=== PATIENT | female | born 1935 | race Caucasian/White ===

== ENCOUNTER 2017-04-06 17:59 | Emergency (ER) | payer MEDICARE, OTHER ==
[~2017-04-06] VITALS: Ht 162.6 cm; Wt 55.4 kg
[~2017-04-06 17:59] MED LIST: ALPR0.25 PO; ASPI81TA82 PO; CALCCHW14; CIPR500T4 PO; CLIN1CAP6 PO; HYDR-3580 PO; METO25TA6 PO; OMEG100010; PRIL20CA PO; ROXI5TAB4 PO; ZOFR4TAB3 SL
[2017-04-06 18:07] VITALS: BP 164/76; PULSE 84; RESP 17; TEMP 98.5; O2SAT 99
--- NOTE | 2017-04-06 18:15 | PD ---
HPI Chief Complaint: Fall Time Seen by Provider: 18:15 Travel History International Travel<30 days: No Contact w/Intl Traveler<30days: No Traveled to known affect area: No History of Present Illness HPI 81-year-old female with PMH of HTN, A. fib, breast CA presents to the ED via EMS for evaluation after a mechanical fall at approximately 2 PM today. Patient states that she was attempting to move a box, pulling backwards, fell onto her left hip. She denies hitting her head or loss of consciousness. She has been ambulatory since the accident. On presentation she complains of 5/10 left buttock pain, no alleviating or exacerbating factors reported. She states that her left leg "doesn't feel right" but denies numbness, tingling, weakness, limitations to range of motion of the extremity. She endorses previous injury to the left femur, stating that she has "hardware." She states that she applied ice with no improvement in symptoms. PFSH Past Medical History Atrial Fibrillation: Yes Cancer: Yes (L BREAST) Hypertension: Yes Insomnia: Yes Radiation Therapy: Yes ?: Not Menopausal: Yes Past Surgical History Abdominal Surgery: Yes (COLON RESCECTION) Appendectomy: Yes Eye Surgery: Yes (CATARACTS, SCAR TISSUE, DETACHED RETINA) Hysterectomy: Yes (TOTAL) Other Surgery: Yes (TOOTH EXTRACTION) Social History Alcohol Use: Yes (OCCASIONALLY) Tobacco Use: No Substance Use: No Allergies-Medications (Allergen,Severity, Reaction): Coded Allergies: Penicillin (Verified Allergy, Severe, Rash, 04/06/17) Clindamycin (Verified Allergy, Mild, rash, 04/06/17) Erythromycin (Verified Allergy, Mild, Diarrhea, 04/06/17) Hydrocodone (Verified Allergy, Mild, Nausea/Vomiting, 04/06/17) Ibuprofen (Verified Allergy, Mild, Hypertension, 04/06/17) Reclast (Verified Allergy, Unknown, 04/06/17) Sulfa (Verified Allergy, Unknown, Skin Discoloration, 04/06/17) Reported Meds & Prescriptions Reported Meds & Active Scripts Active Percocet (Oxycodone-Acetaminophen) 5-325 mg Tab 1 Tab PO Q6H PRN Robaxin (Methocarbamol) 500 Mg Tab 500 Mg PO TID Reported Calcium (Calcium Carbonate) 1,500 Mg Tab 1,500 Mg PO 1,500 mg calcium carbonate (600 mg elemental calcium) Cranberry (Cranberry (Vaccinium Macrocarpon)) 600 Mg Tab 8,400 Mg Green Tea (Green Tea (Camillia Sinensis)) 315 Mg Cap Curcumin (Turmeric (Curcuma Longa) (Bulk) 1 Pow Pow 500 Mg DAILY Coq-10 (Coenzyme Q10 (Ubidecarenone)) 100 Mg Cap DAILY Aspirin 81 Mg Chew 81 Mg CHEW DAILY Magnesium 100 Mg Tab 300 Mg DAILY Selenimin (Selenium) 125 Mcg Tab 200 Mg PO DAILY Red Yeast Rice (Red Yeast Rice Extract) 600 Mg Tab 1,200 Mg DAILY Metoprolol Tartrate 25 Mg Tab 25 Mg PO DAILY Alprazolam 0.5 Mg Tab 0.5 Mg PO Q8H PRN Review of Systems Except as stated in HPI: all other systems reviewed are Neg Physical Exam Narrative GENERAL: Well-nourished, well-developed white female, appearing younger than her stated age lying on her right side in no acute distress. SKIN: Focused skin assessment warm/dry. Large, faint ecchymosis of the left buttock. HEAD: Normocephalic. Atraumatic. EYES: No scleral icterus. No injection or drainage. NECK: Supple, trachea midline. No JVD or lymphadenopathy. CARDIOVASCULAR: Regular rate and rhythm without murmurs, gallops, or rubs. 2+ DP and radial pulses bilaterally. RESPIRATORY: Breath sounds clear and equal bilaterally. No accessory muscle use. GASTROINTESTINAL: Abdomen soft, non-tender, nondistended. Active bowel sounds. MUSCULOSKELETAL: No cyanosis, or edema. FOCUSED LEFT LOWER EXTREMITY EXAM: Palpable spasm of the left buttock. TTP of the buttock, left lateral femur and coccyx. No TTP of the hip or groin. Patient is able to flex and extend the ankle and toes. Flexion of the knee elicits pain in the buttock. No leg length or rotational discrepancy. Sensation intact to light touch distally. Cap refill <2 secs. BACK: Nontender without obvious deformity. No CVA tenderness. No midline TTP. Data Data Last Documented VS Vital Signs Date Time Temp Pulse Resp B/P Pulse Ox O2 Delivery O2 Flow Rate FiO2 04/06/17 18:07 98.5 84 17 164/76 99 Orders Iv Access Insert/Monitor (04/06/17 18:15) Complete Blood Count With Diff (04/06/17 18:15) Basic Metabolic Panel (Bmp) (04/06/17 18:15) Hip, Uni(Ap&Lat) W Ap Pelvis (04/06/17 18:15) Femur (Ap & Lat/2vws) (04/06/17 18:26) Sacrum And Coccyx (04/06/17 ) Morphine Inj (Morphine Inj) (04/06/17 18:30) Orphenadrine Inj (Norflex Inj) (04/06/17 18:30) Sodium Chlorid 0.9% 500 Ml Inj (Ns 500 M (04/06/17 18:30) Oxycodone-Acetamin 5-325 Mg (Percocet (04/06/17 20:30) Labs Laboratory Tests Test 04/06/17 18:26 White Blood Count 8.6 TH/MM3 Red Blood Count 4.26 MIL/MM3 Hemoglobin 12.6 GM/DL Hematocrit 38.6 % Mean Corpuscular Volume 90.5 FL Mean Corpuscular Hemoglobin 29.6 PG Mean Corpuscular Hemoglobin 32.7 % Concent Red Cell Distribution Width 13.0 % Platelet Count 228 TH/MM3 Mean Platelet Volume 7.5 FL Neutrophils (%) (Auto) 69.0 % Lymphocytes (%) (Auto) 21.0 % Monocytes (%) (Auto) 6.9 % Eosinophils (%) (Auto) 2.2 % Basophils (%) (Auto) 0.9 % Neutrophils # (Auto) 5.9 TH/MM3 Lymphocytes # (Auto) 1.8 TH/MM3 Monocytes # (Auto) 0.6 TH/MM3 Eosinophils # (Auto) 0.2 TH/MM3 Basophils # (Auto) 0.1 TH/MM3 CBC Comment DIFF FINAL Differential Comment Sodium Level 141 MEQ/L Potassium Level 3.9 MEQ/L Chloride Level 104 MEQ/L Carbon Dioxide Level 27.6 MEQ/L Anion Gap 9 MEQ/L Blood Urea Nitrogen 14 MG/DL Creatinine 0.87 MG/DL Estimat Glomerular Filtration 63 ML/MIN Rate Random Glucose 104 MG/DL Calcium Level 8.7 MG/DL MDM Medical Decision Making Medical Screen Exam Complete: Yes Emergency Medical Condition: Yes Differential Diagnosis hip fracture versus femur fracture versus coccygeal fracture versus muscle spasm versus musculoskeletal pain versus Narrative Course 81-year-old female with PMH of HTN, A. fib, breast CA presents to the ED via EMS for evaluation after a mechanical fall at approximately 2 PM today. Patient states that she was attempting to move a box, pulling backwards, fell onto her left hip. She denies hitting her head or loss of consciousness. She has been ambulatory since the accident. On presentation she complains of 5/10 left buttock pain, no alleviating or exacerbating factors reported. She states that her left leg "doesn't feel right" but denies numbness, tingling, weakness, limitations to range of motion of the extremity. She endorses previous injury to the left femur, stating that she has had "hardware." Vitals reviewed. Physical exam reveals a large, tender ecchymosis of the left buttock. There is palpable spasm of the left buttock. TTP of the buttock and coccyx. No TTP of the hip or groin. Patient is able to flex and extend the ankle and toes.Flexion of the knee elicits pain in the buttock. No leg length or rotational discrepancy. Neurovascularly intact. IV was established. The patient was administered a 500 mL saline bolus, 4 mg IV morphine and IM Robaxin. CBC and CMP: Unremarkable. X-ray of the sacrum/coccyx: Unremarkable per radiology read. X-ray left hip and pelvis: No acute bony injury per radiology read. X-ray left femur: Evidence of previous injury or radiology read. On recheck the patient is lying on her back, crying. She is requesting more pain medications. States that she has taken Percocet before with no problems. She was administered 5mg Percocet PO. I discussed the results of the workup with the patient. She was able to demonstrate standing and walking before discharge. She complained of mild nausea and was administered 4 mg Zofran ODT. This is contusion of the left buttock. Patient was prescribed a short course of 5 mg Percocet for pain greater than 6 and Robaxin to 6-8 hours as needed for muscle spasm. She is instructed to take Tylenol for pain less than 6 on the pain scale, call her primary care, Dr. Bacon, tomorrow for follow-up. The patient and her indicated understanding of the instructions and are agreeable to the care plan. They are quite impatient to leave. The patient is stable and discharged home. Diagnosis Primary Impression: Contusion of buttock Qualified Code: S30.0XXA - Contusion of buttock, initial encounter Additional Impression: Fall Qualified Code: W19.XXXA - Fall, initial encounter Referrals: Parveen Bacon MD Patient Instructions: Contusion in Adults (ED), General Instructions Additional Instructions: Rest, hydrate. Resume normal, gentle activities as tolerated. No strenuous physical activities for the next few days Take Tylenol as directed on the label as needed for pain 1-5 on the pain scale. Take Percocet as needed for pain greater than 5 on the pain scale. Take Robaxin as needed for muscle spasm. Do not drive while taking narcotics or muscle relaxants. Applying ice or heat to areas with sore muscles may help to improve your pain. Do not apply ice/ heat for longer than 20 m/h. Follow-up with your primary care provider tomorrow as discussed. Return to the ED for any urgent or emergent medical condition. Med/Other Pt SpecificInfo: Prescription(s) given Scripts Oxycodone-Acetaminophen (Percocet)5-325 mg Tab1 Tab PO Q6H PRN (PAIN) #10 TAB Ref 0 Prov:Alba Husain MD 04/06/17 Methocarbamol (Robaxin)500 Mg Les521 Mg PO TID #20 TAB Ref 0 Prov:Alba Husain MD 04/06/17 Disposition: 01 DISCHARGE HOME Condition: Stable Ronel Sharpe April 06, 2017 18:15
[2017-04-06] MEDS ORDERED: SODIUM CHLORID 0.9% 500 ML INJ 500 ML IV ONE (18:30)
[2017-04-06] MEDS ORDERED: ORPHENADRINE INJ 60 MG/2 ML AMP IM ONE (18:30)
[2017-04-06] MEDS ORDERED: MORPHINE SULFATE 4 MG/ML INJ IV PUSH ONE (18:30)
[2017-04-06] MEDS ORDERED: METO25TA3 PO (18:34)
[2017-04-06] MEDS ORDERED: ALPR0.5T3 PO (18:34)
[2017-04-06] MEDS ORDERED: RED600TA ×2 (18:34→18:39)
[2017-04-06 18:39] LABS: AUTOMATED NEUTROPHIL # 5.9 TH/MM3 (1.8-7.7); BASOPHIL # 0.1 TH/MM3 (0-0.2); BASOPHIL % 0.9 % (0.0-2.0); EOSINOPHIL # 0.2 TH/MM3 (0-0.4); EOSINOPHIL % 2.2 % (0.0-4.0); HEMATOCRIT 38.6 % (35.0-46.0); HEMO FLAGS DIFF FINAL; LYMPHOCYTE # 1.8 TH/MM3 (1.0-4.8); MEAN CELL VOLUME 90.5 FL (80.0-100.0); MEAN CORPUSCULAR HEMOGLOBIN 29.6 PG (27.0-34.0); MEAN CORPUSCULAR HGB CONC 32.7 % (32.0-36.0); MONO % 6.9 % (0.0-8.0); PLATELET COUNT 228 TH/MM3 (150-450); RED BLOOD COUNT 4.26 MIL/MM3 (4.00-5.30); WHITE BLOOD COUNT 8.6 TH/MM3 (4.0-11.0)
[2017-04-06] MEDS ORDERED: SELE125T PO (18:39)
[2017-04-06] MEDS ORDERED: CALC600T12 PO (18:39)
[2017-04-06] MEDS ORDERED: CURCPOW (18:39)
[2017-04-06] MEDS ORDERED: COQ-100C2 (18:39)
[2017-04-06] MEDS ORDERED: GREE315C2 (18:39)
[2017-04-06] MEDS ORDERED: ELIT100T2 (18:39)
[2017-04-06] MEDS ORDERED: CRAN600T (18:39)
[2017-04-06] MEDS ORDERED: ASPI81CH CHEW (18:39)
[2017-04-06 19:01] LABS: BICARBONATE 27.6 MEQ/L (21.0-32.0); POTASSIUM 3.9 MEQ/L (3.5-5.1)
--- NOTE | 2017-04-06 19:39 | RADRPT ---
EXAM DATE/TIME: 04/06/2017 18:56 [facility] COMPARISON: FEMUR LEFT (AP & LAT/2VWS), April 06, 2017, 18:56. INDICATIONS : Left hip pain, fall tonight. MEDICAL HISTORY : None. SURGICAL HISTORY : Left femur fx several years ago. ENCOUNTER: Initial ACUITY: 1 day PAIN SCORE: 10/10 LOCATION: Left hip. FINDINGS: Examination of the left hip was performed with AP Pelvis. The primary and secondary trabecular patte rn of the femoral neck is intact. The hip joint is of normal width without significant sclerosis or bony hypertrophy. The acetabulum is grossly intact. There is an incompletely seen bone lesion involv ing the midshaft of the left femur. CONCLUSION: No acute bony injury in the left hip. Incompletely seen abnormality in the midshaft of the left femur . Benny Kee MD on April 06, 2017 at 19:34 Board Certified Radiologist. This report was verified electronically.
--- NOTE | 2017-04-06 19:41 | RADRPT ---
EXAM DATE/TIME: 04/06/2017 18:56 [facility] COMPARISON: No previous studies available for comparison. INDICATIONS : Left hip pain, fall tonight. MEDICAL HISTORY : None. SURGICAL HISTORY : Previous femur fx several years ago. ENCOUNTER: Initial ACUITY: 1 day PAIN SCORE: 10/10 LOCATION: Left hip. FINDINGS: There is a poorly circumscribed mixed lucent and sclerotic lesion in the midshaft region of the left femur. There is nothing to suggest associated soft tissue mass. There is no evidence of acute fractur e. CONCLUSION: Abnormal appearance of the midshaft of the left femur. If the patient has history of prior femur fracture, this could simply represent a manifestation of a healing pattern. If not, furth er evaluation with MRI on an elective basis would be recommended. Benny Kee MD on April 06, 2017 at 19:36 Board Certified Radiologist. This report was verified electronically.
--- NOTE | 2017-04-06 19:43 | RADRPT ---
EXAM DATE/TIME: 04/06/2017 18:59 [facility] COMPARISON: No previous studies available for comparison. INDICATIONS : Lower back, left rear hip pain, fall tonight. MEDICAL HISTORY : None. SURGICAL HISTORY : Femur fx several years ago. ENCOUNTER: Initial ACUITY: 1 day PAIN SCORE: 10/10 LOCATION: Left hip. FINDINGS: Two-view examination of the sacrum and coccyx demonstrates no evidence of fracture or malalignment. The sacral ala and foramina appear symmetric and intact. The coccyx appears unremarkable. The preve rtebral soft tissues are within normal limits. CONCLUSION: Unremarkable examination of the sacrum and coccyx. Benny Kee MD on April 06, 2017 at 19:39 Board Certified Radiologist. This report was verified electronically.
[2017-04-06] MEDS ORDERED: oxyCODONE/ACETAMINOPHEN 5 MG/325 MG TAB PO ONE (20:30)
[2017-04-06] MEDS ORDERED: ROBA500T PO ×2 (20:32→20:33)
[2017-04-06] MEDS ORDERED: PERC5TAB12 PO ×2 (20:32→20:33)
[2017-04-06] MEDS ORDERED: ONDANSETRON ODT 4 MG TAB PO ONE (21:15)
== END 2017-04-06 21:44 | disposition home or self-care (01) ==
LOC: NEPC 17:59
DX: S30.0XXA Contusion of lower back and pelvis, initial encounter (principal); I10 Essential (primary) hypertension; I48.91 Unspecified atrial fibrillation; Z85.3 Personal history of malignant neoplasm of breast; W18.30XA Fall on same level, unspecified, initial encounter; Y93.E9 Activity, other interior property and clothing maintenance; Y92.009 Unspecified place in unspecified non-institutional (private) residence as the place of occurrence of the external cause; Y99.8 Other external cause status
CPT/HCPCS: 72220; 73502; 73552; 80048; 85025; 96374; 96375; 99284; J2270; J2360; J7040

== ENCOUNTER 2017-04-12 17:03 | Emergency (ER) | payer MEDICARE, OTHER ==
[~2017-04-12] VITALS: Ht 165.1 cm; Wt 55.2 kg
[~2017-04-12 17:03] MED LIST changes: -ALPR0.25 PO; +ALPR0.5T3 PO; +ASPI81CH CHEW; -ASPI81TA82 PO; +CALC600T12 PO; -CALCCHW14; -CIPR500T4 PO; -CLIN1CAP6 PO; +COQ-100C2; +CRAN600T; +CURCPOW; +ELIT100T2; +GREE315C2; -HYDR-3580 PO; +METO25TA3 PO; -METO25TA6 PO; -OMEG100010; +PERC5TAB12 PO; -PRIL20CA PO; +RED600TA; +ROBA500T PO; -ROXI5TAB4 PO; +SELE125T PO; -ZOFR4TAB3 SL
[2017-04-12 17:05] VITALS: BP 196/81; PULSE 84; RESP 16; TEMP 97.4; O2SAT 100
--- NOTE | 2017-04-12 17:26 | PD ---
Physical Exam Time Seen by Provider: 17:25 Narrative 81 y/o female here with L buttocks pain/"lump" after a fall. Recently seen about this, getting worse which prompted reevaluation. Vital signs reviewed. Seen at triage desk. Awaiting bed placement. Data Data Last Documented VS Vital Signs Date Time Temp Pulse Resp B/P Pulse Ox O2 Delivery O2 Flow Rate FiO2 04/12/17 17:05 97.4 84 16 196/81 100 MDM Medical Record Reviewed: Yes Supervised Visit with JANE: Augusto Wilson April 12, 2017 17:26
--- NOTE | 2017-04-12 19:57 | PD ---
HPI Chief Complaint: Fall Time Seen by Provider: 19:56 Travel History International Travel<30 days: No Contact w/Intl Traveler<30days: No Traveled to known affect area: No History of Present Illness HPI 81-year-old female presents to the ED for evaluation of hematoma of the buttocks after a fall last week. On presentation the patient states that the pain is improved unless the area is touched. She is ambulatory. The patient called her primary care Dr. Bacon who recommended she seek treatment in the ED. PFSH Past Medical History Atrial Fibrillation: Yes Cancer: Yes (L BREAST) Cardiovascular Problems: Yes (AFIB) Hypertension: Yes Insomnia: Yes Radiation Therapy: Yes Tetanus Vaccination: > 5 Years Menopausal: Yes Past Surgical History Abdominal Surgery: Yes (COLON RESCECTION) Appendectomy: Yes Eye Surgery: Yes (CATARACTS, SCAR TISSUE, DETACHED RETINA) Hysterectomy: Yes Other Surgery: Yes (TOOTH EXTRACTION) Social History Alcohol Use: Yes (wine in the evening 5 times a week.) Tobacco Use: No Substance Use: No Allergies-Medications (Allergen,Severity, Reaction): Coded Allergies: Penicillin (Verified Allergy, Severe, Rash, 04/06/17) Clindamycin (Verified Allergy, Mild, rash, 04/06/17) Erythromycin (Verified Allergy, Mild, Diarrhea, 04/06/17) Hydrocodone (Verified Allergy, Mild, Nausea/Vomiting, 04/06/17) Ibuprofen (Verified Allergy, Mild, Hypertension, 04/06/17) Reclast (Verified Allergy, Unknown, 04/06/17) Sulfa (Verified Allergy, Unknown, Skin Discoloration, 04/06/17) Reported Meds & Prescriptions Reported Meds & Active Scripts Active Percocet (Oxycodone-Acetaminophen) 5-325 mg Tab 1 Tab PO Q6H PRN Robaxin (Methocarbamol) 500 Mg Tab 500 Mg PO TID Reported Calcium (Calcium Carbonate) 1,500 Mg Tab 1,500 Mg PO 1,500 mg calcium carbonate (600 mg elemental calcium) Cranberry (Cranberry (Vaccinium Macrocarpon)) 600 Mg Tab 8,400 Mg Green Tea (Green Tea (Camillia Sinensis)) 315 Mg Cap Curcumin (Turmeric (Curcuma Longa) (Bulk) 1 Pow Pow 500 Mg DAILY Coq-10 (Coenzyme Q10 (Ubidecarenone)) 100 Mg Cap DAILY Aspirin 81 Mg Chew 81 Mg CHEW DAILY Magnesium 100 Mg Tab 300 Mg DAILY Selenimin (Selenium) 125 Mcg Tab 200 Mg PO DAILY Red Yeast Rice (Red Yeast Rice Extract) 600 Mg Tab 1,200 Mg DAILY Metoprolol Tartrate 25 Mg Tab 25 Mg PO DAILY Alprazolam 0.5 Mg Tab 0.5 Mg PO Q8H PRN Review of Systems Except as stated in HPI: all other systems reviewed are Neg Physical Exam Narrative GENERAL: Well-nourished, well-developed white female in no acute distress. SKIN: Focused skin assessment warm/dry. There is a huge hematoma of the left buttock extended to the distal third of the posterior thigh. There is a smaller hematoma of the right buttock. HEAD: Normocephalic. EYES: No scleral icterus. No injection or drainage. NECK: Supple, trachea midline. No JVD or lymphadenopathy. CARDIOVASCULAR: Regular rate and rhythm without murmurs, gallops, or rubs. RESPIRATORY: Breath sounds clear and equal bilaterally. No accessory muscle use. GASTROINTESTINAL: Abdomen soft, non-tender, nondistended. MUSCULOSKELETAL: No cyanosis, or edema. No tenderness to palpation of the hips bilaterally. Patient retains full, active ROM of the bilateral lower extremities. Vascular intact. BACK: Nontender without obvious deformity. No CVA tenderness. Data Data Last Documented VS Vital Signs Date Time Temp Pulse Resp B/P Pulse Ox O2 Delivery O2 Flow Rate FiO2 04/12/17 17:05 97.4 84 16 196/81 100 Orders Complete Blood Count With Diff (04/12/17 20:12) Comprehensive Metabolic Panel (04/12/17 20:12) Prothrombin Time / Inr (Pt) (04/12/17 20:12) Act Partial Throm Time (Ptt) (04/12/17 20:12) Iv Access Insert/Monitor (04/12/17 20:12) Ecg Monitoring (04/12/17 20:12) Oximetry (04/12/17 20:12) Sodium Chloride 0.9% Flush (Ns Flush) (04/12/17 20:15) Ct Pelvis W/O Iv Contrast (04/12/17 ) Morphine Inj (Morphine Inj) (04/12/17 20:45) Labs Laboratory Tests Test 04/12/17 20:25 White Blood Count 7.6 TH/MM3 Red Blood Count 4.32 MIL/MM3 Hemoglobin 13.1 GM/DL Hematocrit 38.3 % Mean Corpuscular Volume 88.6 FL Mean Corpuscular Hemoglobin 30.4 PG Mean Corpuscular Hemoglobin 34.3 % Concent Red Cell Distribution Width 13.2 % Platelet Count 315 TH/MM3 Mean Platelet Volume 7.5 FL Neutrophils (%) (Auto) 54.8 % Lymphocytes (%) (Auto) 33.8 % Monocytes (%) (Auto) 6.4 % Eosinophils (%) (Auto) 3.9 % Basophils (%) (Auto) 1.1 % Neutrophils # (Auto) 4.1 TH/MM3 Lymphocytes # (Auto) 2.6 TH/MM3 Monocytes # (Auto) 0.5 TH/MM3 Eosinophils # (Auto) 0.3 TH/MM3 Basophils # (Auto) 0.1 TH/MM3 CBC Comment DIFF FINAL Differential Comment Prothrombin Time 10.0 SEC Prothromb Time International 0.9 RATIO Ratio Activated Partial 26.0 SEC Thromboplast Time MDM Medical Decision Making Medical Screen Exam Complete: Yes Emergency Medical Condition: Yes Differential Diagnosis Skeletal skeletal pain versus hip fracture versus cervical fracture versus pelvic fracture versus hematoma versus other Narrative Course 81-year-old female presents to the ED for evaluation of hematoma of the buttocks after a fall last week. On presentation the patient states that the pain is improved unless the area is touched. She is ambulatory. The patient called her primary care Dr. Bacon who recommended she seek treatment in the ED. Patient was seen by myself earlier this week where she underwent x-rays of the hip, pelvis and sacrum and coccyx that were all negative. The hematoma is worsened today after compared to last visit. Patient maintains full, active range of motion of the lower extremities. Neurovascularly intact. I spoke with Dr. Bacon who was concerned for occult fracture due to the patient's level of pain. CT of the pelvis has been ordered. I offered the patient narcotic pain medication which she refused. Dr. Green will follow this patient. Please see her note for disposition. Ronel Sharpe April 12, 2017 19:57
[2017-04-12] MEDS ORDERED: SODIUM CHLORIDE 0.9% FLUSH 10 ML FLUSH IV FLUSH PRN (20:15)
[2017-04-12 20:41] LABS: AUTOMATED NEUTROPHIL # 4.1 TH/MM3 (1.8-7.7); BASOPHIL # 0.1 TH/MM3 (0-0.2); BASOPHIL % 1.1 % (0.0-2.0); EOSINOPHIL # 0.3 TH/MM3 (0-0.4); EOSINOPHIL % 3.9 % (0.0-4.0); HEMATOCRIT 38.3 % (35.0-46.0); HEMO FLAGS DIFF FINAL; LYMPH % 33.8 % (9.0-44.0); LYMPHOCYTE # 2.6 TH/MM3 (1.0-4.8); MEAN CELL VOLUME 88.6 FL (80.0-100.0); MEAN CORPUSCULAR HEMOGLOBIN 30.4 PG (27.0-34.0); MEAN CORPUSCULAR HGB CONC 34.3 % (32.0-36.0); MONO % 6.4 % (0.0-8.0); NEUT % 54.8 % (16.0-70.0); PLATELET COUNT 315 TH/MM3 (150-450); RED BLOOD COUNT 4.32 MIL/MM3 (4.00-5.30); RED CELL DISTRIBUTION WIDTH 13.2 % (11.6-17.2); WHITE BLOOD COUNT 7.6 TH/MM3 (4.0-11.0)
[2017-04-12] MEDS ORDERED: MORPHINE SULFATE 4 MG/ML INJ IV PUSH ONE (20:45)
[2017-04-12 20:47] LABS: INTERNATIONAL NORMALIZED RATIO 0.9 RATIO
[2017-04-12 21:01] LABS: ANION GAP 8 MEQ/L (5-15); AST (GOT) 17 U/L (15-37); BICARBONATE 29.6 MEQ/L (21.0-32.0); BLOOD UREA NITROGEN 15 MG/DL (7-18); CHLORIDE 102 MEQ/L (98-107); GLOMERULAR FILTRATION RATE 66 ML/MIN (>89); POTASSIUM 3.8 MEQ/L (3.5-5.1); SODIUM (NA) 140 MEQ/L (136-145)
[2017-04-12 21:04] LABS: ALKALINE PHOSPHATASE 54 U/L (45-117); ALT (GPT) 31 U/L (10-53); TOTAL BILIRUBIN ADULT 0.9 MG/DL (0.2-1.0)
--- NOTE | 2017-04-12 21:51 | RADRPT ---
EXAM DATE/TIME: 04/12/2017 21:07 [facility] COMPARISON: No previous studies available for comparison. INDICATIONS : Patient fell one week ago. Complains of worsening left buttock pain. ORAL CONTRAST: No oral contrast ingested. RADIATION DOSE: 11.87 CTDIvol (mGy) MEDICAL HISTORY : Carcinoma, breast. Hypertension. Afib. Prior left femur fracture. SURGICAL HISTORY : Appendectomy. Hysterectomy.Colon resection. ENCOUNTER: Initial ACUITY: 1 week PAIN SCALE: 10/10 LOCATION: Left buttock TECHNIQUE: Volumetric scanning of the pelvis was performed. Using automated exposure control and adjustment of the mA and/or kV according to patient size, radiation dose was kept as low as reasonably achievable t o obtain optimal diagnostic quality images. FINDINGS: There is a 4 cm hematoma in the left gluteal region overlying the left ischial tuberosity. Fracture i s identified. No hemorrhage or free fluid within the pelvis. Normal appearance of distal bowel. Bladd er unremarkable. CONCLUSION: 1. 4 cm hematoma in the left gluteus janett overlying the left ischial tuberosity. No associated fra cture or dislocation identified. Neil Moulton MD on April 12, 2017 at 21:45 Board Certified Radiologist. This report was verified electronically.
--- NOTE | 2017-04-12 22:16 | PD ---
Physical Exam Date Seen by Provider: April 12, 2017 Narrative Patient is here for recheck of a hematoma Data Data Last Documented VS Vital Signs Date Time Temp Pulse Resp B/P Pulse Ox O2 Delivery O2 Flow Rate FiO2 04/12/17 17:05 97.4 84 16 196/81 100 Orders Complete Blood Count With Diff (04/12/17 20:12) Comprehensive Metabolic Panel (04/12/17 20:12) Prothrombin Time / Inr (Pt) (04/12/17 20:12) Act Partial Throm Time (Ptt) (04/12/17 20:12) Iv Access Insert/Monitor (04/12/17 20:12) Ecg Monitoring (04/12/17 20:12) Oximetry (04/12/17 20:12) Sodium Chloride 0.9% Flush (Ns Flush) (04/12/17 20:15) Ct Pelvis W/O Iv Contrast (04/12/17 ) Morphine Inj (Morphine Inj) (04/12/17 20:45) Labs Laboratory Tests Test 04/12/17 20:25 White Blood Count 7.6 TH/MM3 Red Blood Count 4.32 MIL/MM3 Hemoglobin 13.1 GM/DL Hematocrit 38.3 % Mean Corpuscular Volume 88.6 FL Mean Corpuscular Hemoglobin 30.4 PG Mean Corpuscular Hemoglobin 34.3 % Concent Red Cell Distribution Width 13.2 % Platelet Count 315 TH/MM3 Mean Platelet Volume 7.5 FL Neutrophils (%) (Auto) 54.8 % Lymphocytes (%) (Auto) 33.8 % Monocytes (%) (Auto) 6.4 % Eosinophils (%) (Auto) 3.9 % Basophils (%) (Auto) 1.1 % Neutrophils # (Auto) 4.1 TH/MM3 Lymphocytes # (Auto) 2.6 TH/MM3 Monocytes # (Auto) 0.5 TH/MM3 Eosinophils # (Auto) 0.3 TH/MM3 Basophils # (Auto) 0.1 TH/MM3 CBC Comment DIFF FINAL Differential Comment Prothrombin Time 10.0 SEC Prothromb Time International 0.9 RATIO Ratio Activated Partial 26.0 SEC Thromboplast Time Sodium Level 140 MEQ/L Potassium Level 3.8 MEQ/L Chloride Level 102 MEQ/L Carbon Dioxide Level 29.6 MEQ/L Anion Gap 8 MEQ/L Blood Urea Nitrogen 15 MG/DL Creatinine 0.83 MG/DL Estimat Glomerular Filtration 66 ML/MIN Rate Random Glucose 97 MG/DL Calcium Level 9.4 MG/DL Total Bilirubin 0.9 MG/DL Aspartate Amino Transf 17 U/L (AST/SGOT) Alanine Aminotransferase 31 U/L (ALT/SGPT) Alkaline Phosphatase 54 U/L Total Protein 7.4 GM/DL Albumin 4.0 GM/DL MDM Supervised Visit with JANE: Yes Narrative Course I, Dr. Green, have reviewed the advance practice practitioner's documentation and am in agreement, met with the patient face to face, made the diagnosis, and the medical decision making was done by me. CBC & BMP Diagram 04/12/17 20:25 Coags are normal. Last Impressions Pelvis CT 04/12/17 0000 Signed Impressions: Service Date/Time: Wednesday, April 12, 2017 21:07 - CONCLUSION: 1. 4 cm hematoma in the left gluteus janett overlying the left ischial tuberosity. No associated fracture or dislocation identified. Neil Moulton MD Diagnosis Primary Impression: Contusion of buttock Qualified Code: S30.0XXD - Contusion of buttock, subsequent encounter Disposition: DISCHARGE HOME Condition: Stable Ngozi Green MD April 12, 2017 22:16
== END 2017-04-12 22:44 | disposition home or self-care (01) ==
LOC: NEPD 17:03
DX: S30.0XXA Contusion of lower back and pelvis, initial encounter (principal); I48.91 Unspecified atrial fibrillation; I10 Essential (primary) hypertension; W19.XXXA Unspecified fall, initial encounter
CPT/HCPCS: 72192; 80053; 85025; 85610; 85730